=== PATIENT | female | born 1950 | race Caucasian/White ===

== ENCOUNTER → 2019-05-28 12:23 | Outpatient (CLI) | payer MEDICARE, BC ==
[2016-01-24 11:02] VITALS: BMI 26.1
[~2019-05-28 12:23] MED LIST: BENZONATATE200 MG PO; FERREX 150 PLUS1 CAP PO; FLUTICASONE PRO16 GM NASAL; IPRAT-ALBUT 0.5-3 ML UPD; MOBIC7.5 MG PO; PROMETHAZINE W473 M1 PO; PROTONIX40 MG PO; ROBITUSSIN DM 110 ML PO; XANAX0.5 MG PO
== END | disposition home or self-care (01) ==
LOC: D.US 12:23
PROVIDERS: ATTEND Family Medicine
DX: N64.4 Mastodynia (principal); T85.49XA Other mechanical complication of breast prosthesis and implant, initial encounter

== ENCOUNTER → 2019-06-08 08:00 | Outpatient (CLI) | payer MEDICARE, BC ==
[2016-01-24 11:02] VITALS: BMI 26.1
== END | disposition home or self-care (01) ==
LOC: D.US 08:00
PROVIDERS: ATTEND Family Medicine
DX: N63.20 Unspecified lump in the left breast, unspecified quadrant (principal)